=== PATIENT | male | born 1985 | race Hispanic/Latino ===

== ENCOUNTER 2023-12-18 07:46 | Emergency (ER) | payer OTHER, MEDICARE ==
[~2023-12-18] VITALS: Ht 172.7 cm; Wt 97.5 kg
[2023-12-18] MEDS: ketOROlac 30MG VIAL (30MG/ML) IM ONE (08:47)
[2023-12-18] MEDS ORDERED: CYCL10TA16 PO ×2 (09:14→09:22)
[2023-12-18 09:21] VITALS: BP 137/85; PULSE 90; RESP 18; TEMP 98.2; O2SAT 99
== END 2023-12-18 09:27 | disposition home or self-care (01) ==
LOC: EDH 07:46
DX: M54.16 Radiculopathy, lumbar region (principal); E78.00 Pure hypercholesterolemia, unspecified; I10 Essential (primary) hypertension
CPT/HCPCS: 72100; J1885